=== PATIENT | male | born 1995 | race Caucasian/White ===

== ENCOUNTER 2018-05-10 09:16 | Emergency (ER) | payer BC ==
[2018-05-10 09:26] VITALS: BP 144/92
--- NOTE | 2018-05-10 09:53 | UC ---
Throat Pain/Nasal Rudy HPI - HPI Summary HPI Summary: 1.5 wks of sore throat and intermittent cough. no sick contacts,+ sore throat, + stuffy nose,+ one day of laryngitis. drinking liquids ok, no appetite. no flu shot. denies rash, joint, +unemployed. - History of Current Complaint Chief Complaint: UCRespiratory Stated Complaint: SORE THROAT,CONGESTION Time Seen by Provider: 05/10/18 09:51 Hx Obtained From: Patient Onset/Duration: Gradual Onset Pain Intensity: 6 Cough: Nonproductive Associated Signs & Symptoms: Positive: Dysphagia, Hoarseness, Sinus Discomfort - Epiglottits Risk Factors Epiglottis Risk Factors: Negative - Allergies/Home Medications Allergies/Adverse Reactions: Allergies Allergy/AdvReac Type Severity Reaction Status Date / Time beef derived (bovine) Allergy GI Upset Verified 05/10/18 09:29 Tree Nuts Allergy Severe Airway Uncoded 01/22/14 16:01 Obstruction beef Allergy Hives Uncoded 05/10/18 09:29 eggs Allergy airway Uncoded 05/10/18 09:29 PMH/Surg Hx/FS Hx/Imm Hx - Additional Past Medical History Additional PMH: asthma Respiratory History: Asthma - Surgical History Surgical History: Yes Surgery Procedure, Year, and Place: Undescended testicle - Social History Alcohol Use: Occasionally Substance Use Type: None Smoking Status (MU): Never Smoked Tobacco - Immunization History Most Recent Influenza Vaccination: none this yr Vaccination Up to Date: Yes Review of Systems All Other Systems Reviewed And Are Negative: Yes Constitutional: Positive: Negative Skin: Positive: Negative ENT: Positive: Sore Throat, Sinus Congestion Respiratory: Positive: Cough Cardiovascular: Positive: Negative Gastrointestinal: Positive: Negative Neurological: Positive: Negative Physical Exam Triage Information Reviewed: Yes Appearance: Well-Appearing Vital Signs: Initial Vital Signs Temp 99.7 F 05/10/18 09:23 Pulse 82 05/10/18 09:23 Resp 17 05/10/18 09:23 BP 144/92 05/10/18 09:23 Pulse Ox 100 05/10/18 09:23 Vital Signs Reviewed: Yes Eyes: Positive: Conjunctiva Clear ENT: Positive: Hearing grossly normal, Pharyngeal erythema, Nasal congestion, TMs normal, Uvula midline. Negative: Tonsillar swelling, Tonsillar exudate, Muffled voice, Sinus tenderness Neck: Positive: Supple, No Lymphadenopathy Respiratory: Positive: Lungs clear Cardiovascular Exam: Normal Neurological: Positive: Alert Skin Exam: Normal Throat Pain/Nasal Course/Dx - Course Assessment/Plan: sore throat w/cough and one day of laryngitis. viral etiology. rapid strep neg. has hx of asthma so ensured he had up to date inhaler. we also discussed his elevated BP, no hx of htn. - Differential Dx/Diagnosis Differential Diagnosis/HQI/PQRI: Laryngitis, Tonsillitis, URI Provider Diagnoses: pharyngitis, elevated bp. Discharge - Sign-Out/Discharge Documenting (check all that apply): Patient Departure All imaging exams completed and their final reports reviewed: No Studies - Discharge Plan Condition: Good Disposition: HOME Prescriptions: Albuterol HFA INHALER* [Ventolin HFA Inhaler*] 1 - 2 puff INH Q6H PRN #1 mdi PRN Reason: Cough Patient Education Materials: Pharyngitis (ED) Referrals: Carlota Navas MD [Primary Care Provider] - - Billing Disposition and Condition Condition: GOOD Disposition: Home
== END 2018-05-10 10:22 | disposition home or self-care (01) ==
LOC: UCEAST 09:16
DX: J02.9 Acute pharyngitis, unspecified (principal); R03.0 Elevated blood-pressure reading, without diagnosis of hypertension
CPT/HCPCS: 87651; 99211; G0463

== ENCOUNTER 2019-03-05 18:30 | Emergency (ER) | payer BC ==
--- NOTE | 2019-03-05 18:58 | UC ---
Lower Extremity/Ankle HPI - HPI Summary HPI Summary: 23 yo male presents with right ankle pain. He tells me that about 2 hours [employer] he was skateboarding and he went to do a jump and the skateboard jammed into the plantar aspect of his foot and forced his foot to dorsiflex. Has had pain at his anterior and posterior ankle since that time. Worse with movement and weight bearing. He is able to bear weight, but has pain with this. He is currently ambulatory without assistance. Has not taken anything OTC for his symptoms. - History of Current Complaint Chief Complaint: UCLowerExtremity Stated Complaint: ANKLE INJURY Time Seen by Provider: 03/05/19 18:58 Hx Obtained From: Patient Onset/Duration: Sudden Onset Severity Initially: Moderate Severity Currently: Moderate Pain Intensity: 8 Pain Scale Used: 0-10 Numeric Aggravating Factor(s): Standing, Ambulation Alleviating Factor(s): Rest, Elevation Able to Bear Weight: Yes - Allergies/Home Medications Allergies/Adverse Reactions: Allergies Allergy/AdvReac Type Severity Reaction Status Date / Time beef derived (bovine) Allergy GI Upset Verified 03/05/19 18:59 Tree Nuts Allergy Severe Airway Uncoded 03/05/19 18:59 Obstruction beef Allergy Hives Uncoded 03/05/19 18:59 eggs Allergy airway Uncoded 03/05/19 18:59 PMH/Surg Hx/FS Hx/Imm Hx - Additional Past Medical History Additional PMH: ADHD Psychological History: Anxiety - Surgical History Surgical History: Yes Surgery Procedure, Year, and Place: Undescended testicle - Family History Known Family History: Positive: Non-Contributory - Social History Lives: With Family Alcohol Use: Occasionally Substance Use Type: None Smoking Status (MU): Never Smoked Tobacco - Immunization History Most Recent Influenza Vaccination: none this yr Vaccination Up to Date: Yes Review of Systems All Other Systems Reviewed And Are Negative: No Constitutional: Positive: Negative Skin: Positive: Negative Respiratory: Positive: Negative Cardiovascular: Positive: Negative Neurovascular: Positive: Negative Musculoskeletal: Positive: Other: - Right ankle pain Neurological: Positive: Negative Psychological: Positive: Negative Physical Exam - Summary Physical Exam Summary: GENERAL: NAD. WDWN. No pain distress. SKIN: No rashes, sores, lesions, or open wounds. CHEST: No accessory muscle use. Breathing comfortably and in no distress. CV: Pulses intact PT and DP. Cap refill <2seconds MSK: RIGHT ANKLE: Mild TTP at anterior and posterior aspect of ankle. Achilles tendon intact and NTTP. No lateral or medial malleolus tenderness. FROM, but pain worse with dorsiflexion. Strength 5/5. No edema or obvious bony deformities. Negative talar tilt. Negative [place] test. NEURO: Alert. Sensations intact and symmetric B/L LEs PSYCH: Age appropriate behavior. Triage Information Reviewed: Yes Vital Signs: Vital Signs: Temp Pulse Resp BP Pulse Ox 99.3 F 109 20 137/80 97 03/05/19 18:55 03/05/19 18:55 03/05/19 18:55 03/05/19 18:55 03/05/19 18:55 Vital Signs Reviewed: Yes Diagnostics - Radiology Ankle XR: Radiology Interpretation Completed By: ED Physician Summary of Radiographic Findings: Wet read negative for fx. ?bone island at distal tibia Lower Extremity Course/Dx - Course Course Of Treatment: XR negative for acute process. ?bone island. Discussed results with pt. Advised RICE therapy. He was placed in an ELIJAH wrap, gel splint, and provided with crutches for comfort. F/u with Orthopedics if symptoms do not improve within 1 week. Regarding bone island - will await radiologist report in the morning and call pt with further instructions. - Differential Dx/Diagnosis Provider Diagnosis: Ankle sprain Discharge ED - Sign-Out/Discharge Documenting (check all that apply): Patient Departure All imaging exams completed and their final reports reviewed: No - Discharge Plan Condition: Stable Disposition: HOME Patient Education Materials: Ankle Sprain (ED) Referrals: Carlota Navas MD [Primary Care Provider] - Miguel Rivera MD [Medical Doctor] - If Needed Additional Instructions: If you develop a fever, shortness of breath, chest pain, new or worsening symptoms - please call your PCP or go to the ED immediately. 1) Rest, Ice, and elevate your ankle intermittently throughout the day to reduce pain 2) Use the ELIJAH wrap, gel splint, and crutches as needed for comfort 3) If your symptoms do not improve within 1 week, or if we call you tomorrow with the radiologist's reading a different finding, please call Orthopedics at the number below to schedule a follow up appointment - Billing Disposition and Condition Condition: STABLE Disposition: Home
[2019-03-05 18:59] VITALS: BP 137/80
--- NOTE | 2019-03-06 07:52 | UC ---
- Progress Note Progress Note: wet read correct Course/Dx - Diagnoses Provider Diagnoses: Ankle sprain Discharge ED - Sign-Out/Discharge Documenting (check all that apply): Post-Discharge Follow Up All imaging exams completed and their final reports reviewed: Yes - Discharge Plan Condition: Stable Disposition: HOME Patient Education Materials: Ankle Sprain (ED) Referrals: Miguel Rivera MD [Medical Doctor] - If Needed Carlota Navas MD [Primary Care Provider] - Additional Instructions: If you develop a fever, shortness of breath, chest pain, new or worsening symptoms - please call your PCP or go to the ED immediately. 1) Rest, Ice, and elevate your ankle intermittently throughout the day to reduce pain 2) Use the ELIJAH wrap, gel splint, and crutches as needed for comfort 3) If your symptoms do not improve within 1 week, or if we call you tomorrow with the radiologist's reading a different finding, please call Orthopedics at the number below to schedule a follow up appointment - Billing Disposition and Condition Condition: STABLE Disposition: Home
== END 2019-03-05 19:33 | disposition home or self-care (01) ==
LOC: UCEAST 18:30
DX: S93.401A Sprain of unspecified ligament of right ankle, initial encounter (principal); W18.30XA Fall on same level, unspecified, initial encounter; Y93.51 Activity, roller skating (inline) and skateboarding; Y92.410 Unspecified street and highway as the place of occurrence of the external cause; Y99.8 Other external cause status; F41.9 Anxiety disorder, unspecified
CPT/HCPCS: 99213; G0463